=== PATIENT | male | born 1980 | race American Indian/Alaskan Native ===

== ENCOUNTER 2020-09-20 14:59 | Emergency (ER) | payer SELFPAY ==
[2020-09-20 18:39] VITALS: BP 152/94
== END 2020-09-20 19:00 | disposition left against medical advice (07) ==
LOC: ED 14:59
DX: R03.0 Elevated blood-pressure reading, without diagnosis of hypertension (principal); Z53.21 Procedure and treatment not carried out due to patient leaving prior to being seen by health care provider

== ENCOUNTER 2021-04-13 06:14 | Emergency (ER) | payer OTHER ==
[2021-04-13 08:18] LABS: Basophils % (Auto) 0.4 % (0.0-1.8); Eosinophils # (Auto) 0.1 K/mm3 (0.0-0.4); Eosinophils % (Auto) 1.2 % (0.0-4.3); Hematocrit 39.5 % (35.5-45.6); Hemoglobin 13.6 gm/dl (11.8-15.2); Lymphocytes # (Auto) 1.7 K/mm3 (1.2-5.4); Lymphocytes % (Auto) 34.9 % (13.4-35.0); Mean Corpuscular HGB Conc 34 % (32-34); Mean Corpuscular Volume 88 fl (84-94); Monocytes # (Auto) 0.4 K/mm3 (0.0-0.8); Monocytes % (Auto) 7.2 % (0.0-7.3); Platelet Count 233 K/mm3 (140-440)
--- NOTE | 2021-04-13 08:23 | XRay Report ---
CHEST 2 VIEWS INDICATION / CLINICAL INFORMATION: chest pain. COMPARISON: None available. FINDINGS: SUPPORT DEVICES: None. HEART / MEDIASTINUM: No significant abnormality. LUNGS / PLEURA: No significant pulmonary or pleural abnormality. No pneumothorax. ADDITIONAL FINDINGS: No significant additional findings. IMPRESSION: 1. No acute findings. Signer Name: Kashmir Bartholomew MD Signed: 04/13/2021 8:19 AM Workstation Name: [id number]
[2021-04-13 08:47] LABS: Alanine Aminotransferase 41 units/L (7-56); Albumin 4.7 g/dL (3.9-5); BUN/Creatinine Ratio 16; Blood Urea Nitrogen 21 mg/dL (9-20); Calcium 9.8 mg/dL (8.4-10.2); Hemolysis Index 6
[2021-04-13] MEDS ORDERED: KETOROLAC 30 MG/1 ML INJ IM ONE (08:57)
--- NOTE | 2021-04-13 09:01 | Emergency Department Report ---
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 He went to the [facility] at his job and took a full dose aspirin. At the time of my examination the patient says that the lightheadedness/dizziness, as well as the left arm tingling, has resolved. The chest pain has improved and is now currently a 5 out of 10 in intensity and an aching sensation. He says that it worsens with certain movements of his arms and torso. No known alleviating factors other than the aspirin. He has a past medical history of ial-[id number] diabetes for which he takes 1 g of Metformin twice daily. He follows with a primary care physician, Dr. Turner. No recent travel or sick contacts at home. He denies any fever, cough, shortness of breath, back pain, lower extremity swelling, nausea, vomiting or diaphoresis. Severity scale (0 -10): 3 - Related Data Home Medications Medication Instructions Recorded Confirmed Last Taken Losartan [Cozaar] 100 mg PO QDAY 04/13/21 04/13/21 Unknown metFORMIN [Glucophage] 500 mg PO BID 04/13/21 04/13/21 Unknown Previous Rx's Medication Instructions Recorded Last Taken Type Ibuprofen [Motrin 800 MG tab] 800 mg PO Q8HR PRN #20 tablet 04/13/21 Unknown Rx Allergies Allergy/AdvReac Type Severity Reaction Status Date / Time No Known Allergies Allergy Unverified 01/30/15 03:22 Heart Score - HEART Score History: Slightly suspicious EKG: Normal Age: < 45 Risk factors: 1-2 risk factors Troponin: < normal limit HEART Score: 1 - EKG Read Time Time EKG Completed: : EKG Read Time: 06:27 - Critical Actions Critical Actions: 0-3 pts:0.9-1.7%risk of adverse cardiac event.Candidate for discharge ED Review of Systems ROS: Stated complaint: CHEST PAIN, TINGLING IN LT ARM,DIZZY Other details as noted in HPI Comment: All other systems reviewed and negative Constitutional: denies: chills, fever Eyes: denies: eye pain, vision change ENT: denies: ear pain, throat pain Respiratory: denies: cough, shortness of breath Cardiovascular: chest pain. denies: palpitations Genitourinary: denies: dysuria, discharge Musculoskeletal: denies: back pain, arthralgia Skin: denies: rash, lesions Neurological: paresthesias, other (Lightheadedness/dizziness). denies: headache ED Past Medical Hx - Past Medical History Hx Hypertension: Yes Hx Diabetes: Yes - Social History Smoking Status: Never Smoker - Medications Home Medications: Home Medications Medication Instructions Recorded Confirmed Last Taken Type Ibuprofen [Motrin 800 MG tab] 800 mg PO Q8HR PRN #20 tablet 04/13/21 Unknown Rx Losartan [Cozaar] 100 mg PO QDAY 04/13/21 04/13/21 Unknown History metFORMIN [Glucophage] 500 mg PO BID 04/13/21 04/13/21 Unknown History ED Physical Exam - General Limitations: No Limitations - Other Other exam information: GENERAL: The patient is well-developed well-nourished. HENT: Normocephalic. Atraumatic. Patient has moist mucous membranes. EYES: Extraocular motions are intact. NECK: Supple. Trachea is midline. CHEST/LUNGS: Clear to auscultation. There is no respiratory distress noted. There is reproducible midsternal chest wall tenderness to palpation. No crepitus or deformity. HEART/CARDIOVASCULAR: Regular. There is no tachycardia. There is no murmur. ABDOMEN: Abdomen is soft, nontender. Patient has normal bowel sounds. Obese habitus. SKIN: Skin is warm and dry. NEURO: The patient is awake, alert, and oriented. The patient is cooperative. The patient has no focal neurologic deficits. Normal speech. MUSCULOSKELETAL: There is no tenderness or deformity. There is no limitation range of motion. Radial pulse +2/4 and capillary refill less than 2 seconds to the left upper extremity. ED Course Vital Signs 04/13/21 04/13/21 04/13/21 06:29 08:52 10:41 Temperature 97.9 F Pulse Rate 82 88 76 Respiratory 18 12 Rate Blood Pressure 129/87 Blood Pressure 129/90 119/57 [Left] O2 Sat by Pulse 99 96 99 Oximetry 04/13/21 11:54 Temperature Pulse Rate 71 Respiratory Rate Blood Pressure Blood Pressure 116/68 [Left] O2 Sat by Pulse 95 Oximetry MELECIO score - Melecio Score Age > 65: (0) No Aspirin use within the Past 7 Days: (1) Yes 3 or more CAD Risk Factors: (0) No 2 or more Angina events in past 24 hrs: (0) No Known CAD with more than 50% Stenosis: (0) No Elevated Cardiac Markers: (0) No ST Deviation Greater than 0.5mm: (0) No MELECIO Score: 1 ED Medical Decision Making - Lab Data Result diagrams: 04/13/21 07:44 04/13/21 07:44 Lab Results 04/13/21 04/13/21 04/13/21 Range/Units 07:44 07:44 10:46 WBC 4.9 (4.5-11.0) K/mm3 RBC 4.50 (3.65-5.03) M/mm3 Hgb 13.6 (11.8-15.2) gm/dl Hct 39.5 (35.5-45.6) % MCV 88 (84-94) fl MCH 30 (28-32) pg MCHC 34 (32-34) % RDW 15.0 (13.2-15.2) % Plt Count 233 (140-440) K/mm3 Lymph % (Auto) 34.9 (13.4-35.0) % [place] % (Auto) 7.2 (0.0-7.3) % Eos % (Auto) 1.2 (0.0-4.3) % Baso % (Auto) 0.4 (0.0-1.8) % Lymph # (Auto) 1.7 (1.2-5.4) K/mm3 [place] # (Auto) 0.4 (0.0-0.8) K/mm3 Eos # (Auto) 0.1 (0.0-0.4) K/mm3 Baso # (Auto) 0.0 (0.0-0.1) K/mm3 Seg Neutrophils % 56.3 (40.0-70.0) % Seg Neutrophils # 2.8 (1.8-7.7) K/mm3 Sodium 138 (137-145) mmol/L Potassium 3.9 (3.6-5.0) mmol/L Chloride 99.8 (98-107) mmol/L Carbon Dioxide 27 (22-30) mmol/L Anion Gap 15 mmol/L BUN 21 H (9-20) mg/dL Creatinine 1.3 (0.8-1.3) mg/dL Estimated GFR > 60 ml/min BUN/Creatinine Ratio 16 % Glucose 129 H (75-100) mg/dL Calcium 9.8 (8.4-10.2) mg/dL Total Bilirubin 0.50 (0.1-1.2) mg/dL AST 37 (5-40) units/L ALT 41 (7-56) units/L Alkaline Phosphatase 57 (35-129) units/L Troponin T < 0.010 < 0.010 (0.00-0.029) ng/mL Total Protein 7.5 (6.3-8.2) g/dL Albumin 4.7 (3.9-5) g/dL Albumin/Globulin Ratio 1.7 % - EKG Data -: EKG Interpreted by In EKG shows normal: sinus rhythm, axis, intervals, QRS complexes, ST-T waves Rate: normal - EKG Data When compared to previous EKG there are: previous EKG unavailable Interpretation: normal EKG - Radiology Data Radiology results: image reviewed interpreted by me: Chest x-ray does not show any acute process. There are no pleural effusions, obvious pneumonia and there is no pneumothorax. No widened mediastinum. - Medical Decision Making This patient presents to the emergency department with a complaint of initially having midsternal chest pain, left arm tingling and some lightheadedness/dizziness. By the time of my examination, after the patient took some aspirin, the patient just complains of some mild to moderate chest discomfort. The rest of the symptoms have since resolved. Heart and lung sounds are normal to auscultation. The patient does not appear in any respiratory or acute distress. There is reproducible midsternal chest wall tenderness to palpation without crepitus or deformity. EKG does not show any morphology consistent with ST elevation myocardial infarction or any arrhythmia. Chest x-ray does not show any pneumonia, pleural effusions, pneumothorax, widened mediastinum, or any other acute process. Labs have been unremarkable including CBC, metabolic panel and negative troponins x2. He was given a dose of IM Toradol and upon reevaluation says that his pain is greatly improved. The patient has a low heart and MELECIO score. He is low on the Wells score criteria and negative on the pulmonary embolism rule out criteria. He also does not have any risk factors for thromboembolic disease. Vital signs have been reassuring throughout his ED course including being afebrile. No hypoxia. This all appears most consistent with costochondritis or chest wall pain. Patient's only risk factor is diabetes mellitus. His contact information has been sent over to the [facility], and someone from their office should be contacting him shortly for close outpatient follow-up as per our [facility] low risk chest pain protocol. Critical Care Time: No Critical care attestation.: If time is entered above; I have spent that time in minutes in the direct care of this critically ill patient, excluding procedure time. ED Disposition Clinical Impression: Chest pain Qualifiers: Chest pain type: unspecified Qualified Code(s): R07.9 - Chest pain, unspecified Disposition: DC- TO HOME OR SELFCARE Is pt being admited?: No Condition: Stable Instructions: Nonspecific Chest Pain, Adult, Chest Wall Pain Additional Instructions: Please follow-up with a primary care physician in the next few days. I have sent your contact information over to the [facility], and someone from their office should be contacting you shortly for close outpatient follow-up. Just in case, I have given you a referral for one of their cardiologists, Dr. Powell. Return to the emergency department with any worsening of your symptoms, new or concerning symptoms not addressed during this current emergency department visit, or with any acute distress. Prescriptions: Ibuprofen [Motrin 800 MG tab] 800 mg PO Q8HR PRN #20 tablet PRN Reason: Pain , Severe (7-10) Referrals: DELFIN POWELL MD [Staff Physician] - 2-3 Days Forms: Work/School Release Form(ED) Time of Disposition: 11:47
[2021-04-13 11:56] VITALS: BP 116/68
--- NOTE | 2021-04-14 14:06 | Electrocardiograph Report ---
[facility] Test Date: 2021-04-13 Test Time: 06:22:08 Pat Name: DEMOND GREENFIELD Department: Room: Gender: M [employer]: TRI : 1980 Requested By: MANOJ REED Order Number: [id number] Reading MD: Noemi Toussaint Measurements Intervals [place] Rate: 81 P: 45 OK: 160 QRS: -13 QRSD: 92 T: 16 QT: 399 QTc: 464 Interpretive Statements Sinus rhythm No previous ECG available for comparison Electronically Signed On 04-14-2021 14:06:32 EDT by Noemi Toussaint
== END 2021-04-13 11:57 | disposition home or self-care (01) ==
LOC: ED 06:14
DX: R07.89 Other chest pain (principal); I10 Essential (primary) hypertension; E11.9 Type 2 diabetes mellitus without complications; Z79.1 Long term (current) use of non-steroidal anti-inflammatories (NSAID); Z79.84 Long term (current) use of oral hypoglycemic drugs; Z79.899 Other long term (current) drug therapy
CPT/HCPCS: 36415; 71046; 80053; 84484; 85025; 93005; 96372; 99284; J1885